=== PATIENT | male | born 1960 | race Caucasian/White ===

== ENCOUNTER → 2016-11-20 | Outpatient (CLI) | payer BC | LOC: BMCIMAGING 15:01 | PROVIDERS: ATTEND Internal Medicine | DX: R50.9 Fever, unspecified (principal); R05 Cough; Z85.6 Personal history of leukemia ==

== ENCOUNTER 2019-01-15 19:53 | Emergency (ER) | payer BC ==
[2019-01-15 20:02] VITALS: BP 158/89
--- NOTE | 2019-01-15 20:13 | EDPHY ---
H & P Stated Complaint: left ring finger pain deformity Time Seen by Provider: 01/15/19 20:12 HPI/ROS: Chief Complaint: Dislocation of the left 4th DIP joint HPI: Patient presents the ED with a dislocation of his left 4th DIP joint that occurred when he was reaching into his car. He presents to the ED with an obvious dislocation and associated pain. He denies additional acute complaints REVIEW OF SYSTEMS: Neuro: No numbness or weakness Musculoskeletal: as above Skin: no abrasion or lacerations Source: Patient Exam Limitations: No limitations - Personal History Current Tetanus Diphtheria and Acellular Pertussis (TDAP): Yes - Medical/Surgical History Hx Asthma: No Hx Chronic Respiratory Disease: No Hx Diabetes: No Hx Cardiac Disease: No Hx Renal Disease: No Hx Cirrhosis: No Hx Alcoholism: No Hx HIV/AIDS: No Hx Splenectomy or Spleen Trauma: No Other PMH: luekemia - Social History Smoking Status: Former smoker - Physical Exam Exam: General Appearance: Alert, no distress Left hand: Obvious dorsal dislocation involving the left 4th PIP joint. Neuro: Sensation intact to light touch Vascular: Normal capillary refill Constitutional: Initial Vital Signs Temperature (C) 36.7 C 01/15/19 19:58 Heart Rate 73 01/15/19 19:58 Respiratory Rate 16 01/15/19 19:58 Blood Pressure 158/89 H 01/15/19 19:58 O2 Sat (%) 94 01/15/19 19:58 O2 Delivery Mode Room Air Allergies/Adverse Reactions: No Known Allergies Allergy (Unverified 01/15/19 20:02) Home Medications: Medication Instructions Recorded Ibrutinib 01/15/19 Medical Decision Making - Diagnostics Imaging Results: Post reduction left 4th finger x-ray: Images reviewed by myself. Impression negative for acute fracture or dislocation. Procedures: Procedure: Dislocation reduction. Indication: Dislocation The finger dislocation was reduced in the usual fashion without complications. Post reduction the patient's neurovascular exam is normal. Post reduction x- ray demonstrates reduction of the joint to the anatomic position. The procedure was performed by myself. ED Course/Re-evaluation: Patient's finger dislocation was reduced by myself without complication. He is placed in aluminum foam splint. The patient will follow up with Hand surgery for any ongoing pain instability or immobility Differential Diagnosis: Differential diagnosis considered includes fracture, sprain, dislocation Departure - Departure Disposition: Home, Routine, Self-Care Clinical Impression: Finger dislocation Condition: Good Instructions: Finger Dislocation (ED) Additional Instructions: 1. Tylenol and ibuprofen as needed for pain. 2. Finger splint for comfort for next several days. 3. Follow up with a hand surgeon you have been referred to for any persistent instability, pain or other concerns. Referrals: Darby Hallman MD [Primary Care Provider] - As per Instructions Waqas Quiles MD [Medical Doctor] - As per Instructions
== END 2019-01-15 20:36 | disposition home or self-care (01) ==
PROC: 0RSXXZZ Reposition Left Finger Phalangeal Joint, External Approach (ICD-10-PCS; principal; 2019-01-15)
DX: S63.255A Unspecified dislocation of left ring finger, initial encounter (principal); X58.XXXA Exposure to other specified factors, initial encounter; Y92.810 Car as the place of occurrence of the external cause; Z87.891 Personal history of nicotine dependence
CPT/HCPCS: L3925